=== PATIENT | female | born 1960 | race Caucasian/White ===

== ENCOUNTER 2017-10-11 20:37 | Emergency (ER) | payer OTHER ==
[~2017-10-11] VITALS: Ht 167.6 cm; Wt 89.8 kg
[2017-10-11 20:45] VITALS: Ht 167.6 cm; Wt 89.8 kg
[2017-10-11 21:54] VITALS: BP 113/62
== END 2017-10-11 21:54 | disposition home or self-care (01) ==
LOC: ED 20:37
DX: S82.832A Other fracture of upper and lower end of left fibula, initial encounter for closed fracture (principal); I10 Essential (primary) hypertension; W10.9XXA Fall (on) (from) unspecified stairs and steps, initial encounter; Y93.89 Activity, other specified; Y92.89 Other specified places as the place of occurrence of the external cause; Y99.8 Other external cause status
CPT/HCPCS: Q0092

== ENCOUNTER 2018-03-07 08:29 | Emergency (ER) | payer OTHER ==
[~2018-03-07] VITALS: Ht 167.6 cm; Wt 89.4 kg
[2018-03-07 08:39] VITALS: Ht 167.6 cm; Wt 89.4 kg
[2018-03-07 10:17] VITALS: BP 131/86
== END 2018-03-07 10:25 | disposition home or self-care (01) ==
LOC: ED 08:29
DX: H81.10 Benign paroxysmal vertigo, unspecified ear (principal); R51 Headache; I10 Essential (primary) hypertension; M54.31 Sciatica, right side; K21.9 Gastro-esophageal reflux disease without esophagitis
CPT/HCPCS: 82962

== ENCOUNTER 2018-09-10 01:00 | Inpatient (IN) | payer OTHER ==
[~2018-09-10] VITALS: Ht 165.1 cm; Wt 90.8 kg
[2018-09-10 01:23] VITALS: Ht 165.1 cm; Wt 90.8 kg
--- NOTE | 2018-09-10 01:34 | NUR ---
REC'D A 58/F IN RM 9 WITH C/O LEFT ARM NUMBNESS X 1 HR TIMBER TRIMMER. PT REPORTS SHE WAS TALKING ON THE PHONE AND SUDDENLY HER LEFT ARM BECAME NUMB AND "FELT HEAVY". THE EPISODE LASTED "LESS THAN 5 MINUTES". PT REPORTS SHE TOOK 2 BABY ASA IMMEDIATELY AFTERWARDS. PT REPORTS HAVE RESOLVED. 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
--- NOTE | 2018-09-10 01:39 | NUR ---
DR CRUZ AT BEDSIDE FOR MSE.
--- NOTE | 2018-09-10 02:09 | NUR ---
PATIENT SEEN WITH COMPLAINT OF LEFT ARM NUMBNESS. REPORTS SPIDER BITE X 3 DAYS AGO. CLAIM SHE TOOK A 800 MG BACTRIM, AND HER LEFT ARM FELT NUMB AFTER.PATIENT WAS SEEN BY MD. EKG WAS DONE. PATIENT WENT FOR CT SCAN.
--- NOTE | 2018-09-10 02:22 | NUR ---
PATIENT AMBULATED TO THE BATHROOM. URINE COLLECTED.
--- NOTE | 2018-09-10 02:30 | NUR ---
SPOKE WITH ZABRINA FROM [facility] FOR NEGATIVE FINDINGS AND RECIEPT OF WRITTEN REPORT.
--- NOTE | 2018-09-10 02:55 | NUR ---
PROCESSING ANALYST AT THE BEDSIDE DRAWING BLOOD.
[2018-09-10 03:10] LABS: BASOPHIL % 0.3 % (0-2); PLATELET COUNT 222 x10^3mcL (130-400); RED CELL DISTRIBUTION WIDTH 13.4 % (11.5-14.5)
[2018-09-10 03:11] LABS: microscopic required? YES; urine erythrocyte TRACE (NEGATIVE)
[2018-09-10 03:33] LABS: CALCIUM 9.2 mg/dL (8.5-10.1); CARBON DIOXIDE 27.4 mmol/L (21-32); CHLORIDE SERUM 109 mmol/L (98-107); GFR1 > 60 mL/min; GLUCOSE SERUM 106 mg/dL (74-106); SODIUM SERUM 144 mmol/L (136-145)
[2018-09-10 03:39] LABS: ALBUMIN 3.8 g/dL (3.4-5.0); ALKALINE PHOSPHATASE 75 U/L (46-116); ALT/SGPT 19 U/L (14-59); AST/SGOT 13 U/L (15-37); BILIRUBIN TOTAL 0.22 mg/dL (0.20-1.00); TOTAL PROTEIN, SERUM 7.1 g/dL (6.4-8.2)
--- NOTE | 2018-09-10 03:45 | NUR ---
PATIENT WAS EVALUATED BY TELE NEURO MD. PATIENT REPORTS NUMBNESS OF HER LEFT ARM AND WEAKNESS, BUT DENIES ANY SYMPTOMS AT THIS TIME.NIHSS SCORE IS 1; MD EVALUATED. PATIENT WILL BE ADMITTED FOR TIA.
[2018-09-10] MEDS ORDERED: OMEPRAZOLE20 M4 PO (04:05)
--- NOTE | 2018-09-10 04:11 | NUR ---
MEDICATED WITH 2 BABY ASA. NO COMPLAINT AT THIS TIME.
--- NOTE | 2018-09-10 04:25 | NUR ---
REPORT WAS GIVEN TO LINDEN. PATIENT WILL BE TRANSPORTED TO ROOM 252B.
--- NOTE | 2018-09-10 04:38 | NUR ---
PT RECEIVED FROM ED VIA GURNEY ACCOMPANIED BY NURSE. 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 TELE #27, PT DENIES ANY CP/PRESSURE. PULSES PALPABLE, NO EDEMA PRESENT. BREATHING IS EVEN AND UNLABORED ON RA, NO RESP DISTRESS NOTED. ABD SOFT AND NONDISTENDED, DENIES N/V. VOIDS FREELY, BRP. GENERALIZED WEAKNESS, WEAKNESS AND NUMBNESS TO LUE, PT ABLE TO MOVE EXTREMITIES AND FEEL SENSATION. PT DENIES HAVING ANY PAIN AT THIS TIME. SL TO RAC (20g), PATENT AND INTACT, SITE FREE FROM REDNESS OR SWELLING. ORIENTED PT TO ROOM AND CALL LIGHT. BED IN LOWEST SETTING, SIDE RAILS UP X2, CALL LIGHT WITHIN REACH. WILL CONT TO MONITOR.
[2018-09-10 04:58] VITALS: BP 133/82
--- NOTE | 2018-09-10 06:17 | NUR ---
PT SLEPT AT INTERVAL THROUGHOUT THE EVENING. BREATHING IS EVEN AND UNLABORED, NO RESP DISTRESS NOTED. PT DENIES HAVING ANY PAIN AT THIS TIME. PT REPORTS HAVING LUE WEAKNESS, BUT IS ABLE TO MOVE ARM. IVF INFUSING WELL TO [facility], SITE WNL. NO ACUTE CHANGES ENCOUNTERD DURING SHIFT. ALL NEEDS MET. CALL LIGHT WITHIN REACH. WILL ENDORSE CARE TO AM NURSE.
[2018-09-10 06:54] LABS: AMPHETAMINE QUAL UR NONE DETECTED (See below)
[2018-09-10 06:57] LABS: CHOLESTEROL/HDL RATIO 3.7; PHOSPHOROUS 3.6 mg/dL (2.5-4.9)
--- NOTE | 2018-09-10 07:10 | NUR ---
SEEN IN BED AAOX4. NO SOB OR RESP DISTRESS NOTED ON ROOM AIR. STATED NUMBNESS AND WEAK TO LEFT ARM. SPEECH CLEAR, NO FACIAL DROOLING. 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 IVF NS TO RAC INFUSING WELL. PLAN OF CARE DISCUSSED. CALL LIGHT PLACED WITHIN EASY REACH. SIDERAILS UP X2.
--- NOTE | 2018-09-10 07:24 | NUR ---
PT IN NO ACUTE DISTRESS. CONTINUITY OF CARE ENDORSED TO RADHIKA BARRIOS. ALL QUESTIONS AND CONCERNS ADDRESSED.
[2018-09-10 08:34] VITALS: BP 109/48
[2018-09-10 08:53] LABS: microscopic required? YES; urine erythrocyte TRACE (NEGATIVE)
--- NOTE | 2018-09-10 11:29 | NUR ---
DOCTOR ZAMORA AND MEDICAL TEAM AT BEDSIDE FOR AM ROUND. PATIENT MADE AWARE OF CURRENT CONDITION AND PLAN OF CARE.
[2018-09-10 13:20] VITALS: BP 114/82
[2018-09-10 13:49] VITALS: BP 114/82
--- NOTE | 2018-09-10 14:54 | NUR ---
DISCHARGE INSTRUCTION GIVEN TO PATIENT WHO IS AWAKE, ALERT, ORIENTED X4. S/L TO RAC REMOVED WITH CATHETER INTACT, DSRG APPLIED. TELEMETRY#27 CLEANED AND RETURNED TO AL. CONDITION STABLE. REFUSED WHEELCHAIR, ACCOMPANIED BY ME TO LOBBY PICKED UP PATIENT'S DAUGHTER. CONDITION STABLE, ALL BELONGINGS BROUGHT HOME WITH PATIENT.
--- NOTE | 2018-09-11 08:32 | NUR ---
ECHO NOT DONE PT. DISCHARGED
[2018-09-12 06:12] LABS: RAPID PLASMA REAGIN Non Reactive (Non Reactive)
== END 2018-09-10 14:54 | disposition home or self-care (01) | DRG 47 ==
LOC: ED 01:00 → DU 03:58
PROVIDERS: Emergency Medicine; ADMIT General Practice
DX: G45.9 Transient cerebral ischemic attack, unspecified (principal); E87.8 Other disorders of electrolyte and fluid balance, not elsewhere classified; G90.8 Other disorders of autonomic nervous system; I10 Essential (primary) hypertension; K21.9 Gastro-esophageal reflux disease without esophagitis; E78.5 Hyperlipidemia, unspecified; M19.90 Unspecified osteoarthritis, unspecified site; M54.30 Sciatica, unspecified side; Z88.6 Allergy status to analgesic agent
CPT/HCPCS: 83880; G0378; J7030